=== PATIENT | male | born 1990 | race Caucasian/White ===

== ENCOUNTER → 2020-03-09 | Outpatient (CLI) | payer BC, OTHER | LOC: SJCVCIMAG 10:03 | DX: R55 Syncope and collapse (principal); E78.5 Hyperlipidemia, unspecified; R07.9 Chest pain, unspecified; R42 Dizziness and giddiness; G89.29 Other chronic pain; R06.02 Shortness of breath; F41.9 Anxiety disorder, unspecified ==